=== PATIENT | male | born 1940 | race Caucasian/White ===

== ENCOUNTER 2018-07-16 07:04 | Day surgery (SDC) | payer BC ==
[~2018-07-16] VITALS: Ht 160 cm; Wt 93.0 kg
[2018-07-16] VITALS (14 sets, daily range): BP systolic 117–145; BP diastolic 76–91; PULSE 65–81; TEMP 97.5
[2018-07-16 07:31] LABS: HEMATOCRIT 50.1 % (42.0-52.0); HEMOGLOBIN 17.3 g/dl (13.5-18.0); MEAN CELL VOLUME 89 fl (80.0-100.0); MEAN CORPUSCULAR HEMOGLOBIN 31 pg (27.0-31.0); MEAN CORPUSCULAR HGB CONC 35 g/dl (33.0-37.0); MEAN PLATELET VOLUME 9.8 fl (7.4-10.4); PLATELET COUNT 284 K/mm3 (130-400); RED BLOOD COUNT 5.65 M/mm3 (4.20-5.60); REDCELL DISTRIBUTION WIDTH-CV 12.6 % (11.5-14.5)
[2018-07-16 07:37] LABS: INR 1.1 (0.8-3.0); PROTHROMBIN TIME 12.1 SECONDS (9.7-12.8)
[2018-07-16 07:39] LABS: ALBUMIN 4.5 gm/dL (3.5-5.0); BILIRUBIN,TOTAL 1.1 mg/dL (0.0-1.0); CALCIUM 9.7 mg/dL (8.4-10.2); CREATININE, serum 1.06 (0.66-1.25); POTASSIUM 3.6 mmol/L (3.4-5.0); TOTAL PROTEIN 8.1 gm/dL (6.4-8.2)
[2018-07-16] MEDS ORDERED: FLOMAX 0.40.4 MG/CAP PO (08:04)
[2018-07-16] MEDS ORDERED: LIPITOR 80MG80 MG PO (08:04)
[2018-07-16] MEDS ORDERED: PRINZIDE 12.5 M1 TA1 PO (08:05)
[2018-07-16] MEDS ORDERED: ADALAT CC60 MG PO (08:05)
[2018-07-16] MEDS ORDERED: ASPIRIN E.C. 8181 MG PO (08:06)
[2018-07-16] MEDS ORDERED: EPA FISH OIL1 SGL PO (08:06)
[2018-07-16] MEDS ORDERED: ZYLOPRIM 100MG100 MG PO (08:06)
[2018-07-16] MEDS ORDERED: ASPI325T6 PO (08:07)
--- NOTE | 2018-07-16 10:33 | NUR ---
ALL MEDICATIONS GIVEN WITH VERBAL ORDER AND READBACK WITH MD. SEE MERGE FOR ALL MEDICATION ADMIN TIMES. SEE MERGE FOR ALL RASS ASSESSMENTS DURING AND AFTER PROCEDURE.
--- NOTE | 2018-07-16 11:50 | NUR ---
Pt returned to EU 12 per bed s/p heart cath. Pt briana well, at bedside. Pre op IVF 1/2 NS IV at 100 ml/hr is running per gravity.
--- NOTE | 2018-07-16 13:17 | NUR ---
IVF 1/2 NS decreased to 75 ml/hr.
[2018-07-16] MEDS ORDERED: ZEBETA 5MG5 MG PO (16:10)
--- NOTE | 2018-07-16 16:19 | NUR ---
Report received from Claudine Huddleston.
--- NOTE | 2018-07-16 18:24 | NUR ---
INT removed,catheter tip intact.Discharge instructions reviewed by Claudine Huddleston.Pt denies questions.Pt escorted out via wheelchair by Student Nurse.
== END 2018-07-16 18:25 | disposition home or self-care (01) ==
LOC: COL.CAR 07:04
PROVIDERS: Internal Medicine Cardiovascular Disease
DX: I25.10 Atherosclerotic heart disease of native coronary artery without angina pectoris (principal); R94.39 Abnormal result of other cardiovascular function study; Z95.1 Presence of aortocoronary bypass graft; I10 Essential (primary) hypertension; E78.00 Pure hypercholesterolemia, unspecified; M10.9 Gout, unspecified; Z87.891 Personal history of nicotine dependence
CPT/HCPCS: C1760; C1769; C1894; J1644; J2250; J3010; Q9967